=== PATIENT | female | born 1955 | race African-American/Black ===

== ENCOUNTER → 2021-12-10 11:57 | Outpatient (CLI) | payer MEDICARE, SELFPAY | PROVIDERS: Visit Provider Family Medicine | DX: R31.9 Hematuria, unspecified (principal) | CPT/HCPCS: 87086 ==

== ENCOUNTER → 2021-12-10 12:53 | Outpatient (CLI) | payer MEDICARE, SELFPAY ==
[2021-12-10 14:20] LABS: BUN Creatinine Ratio 14.4 (6-22); Blood Urea Nitrogen 16 mg/dL (7-17); Calcium 9.9 mg/dL (8.4-10.2); Carbon Dioxide 28 mmol/L (22-32); Chloride 98 mmol/L (98-107); Estimated Glomerular Filt Rate 49.2 mL/min (>60); Glucose 107 mg/dL (80-110); HEMOLYSIS < 15 (0-50); Potassium 3.5 mmol/L (3.4-5.1); Sodium 133 mmol/L (137-145)
== END ==
PROVIDERS: Referring Provider Family Medicine; Visit Provider Family Medicine
DX: E87.6 Hypokalemia (principal); R33.9 Retention of urine, unspecified; R31.9 Hematuria, unspecified
CPT/HCPCS: 36415; 80048; 87086

== ENCOUNTER → 2022-01-14 11:47 | Outpatient (CLI) | payer MEDICARE, SELFPAY ==
[2022-01-14 12:44] LABS: BUN Creatinine Ratio 6.3 (6-22); Blood Urea Nitrogen 5 mg/dL (7-17); Calcium 9.7 mg/dL (8.4-10.2); Carbon Dioxide 29 mmol/L (22-32); Chloride 105 mmol/L (98-107); Estimated Glomerular Filt Rate > 60.0 mL/min (>60); Glucose 92 mg/dL (80-110); HEMOLYSIS < 15 (0-50); Potassium 3.5 mmol/L (3.4-5.1); Sodium 140 mmol/L (137-145)
== END ==
PROVIDERS: PCP Family Medicine; Referring Provider Family Medicine; Visit Provider Family Medicine
DX: Z87.898 Personal history of other specified conditions (principal)
CPT/HCPCS: 36415; 80048

== ENCOUNTER → 2022-02-21 11:17 | Outpatient (CLI) | payer MEDICARE, MEDICAID, SELFPAY ==
[2022-02-21 11:54] LABS: BUN Creatinine Ratio 18.7 (6-22); Blood Urea Nitrogen 14 mg/dL (7-17); Calcium 8.6 mg/dL (8.4-10.2); Carbon Dioxide 24 mmol/L (22-32); Chloride 107 mmol/L (98-107); Estimated Glomerular Filt Rate > 60 mL/min (>60); Glucose 86 mg/dL (80-110); HEMOLYSIS 36 (0-50); Potassium 3.7 mmol/L (3.4-5.1); Sodium 139 mmol/L (137-145)
== END ==
PROVIDERS: PCP Family Medicine; Referring Provider Urology; Visit Provider Urology
DX: R79.89 Other specified abnormal findings of blood chemistry (principal)
CPT/HCPCS: 36415; 80048

== ENCOUNTER → 2022-05-13 14:57 | Outpatient (CLI) | payer MEDICARE, MEDICAID, SELFPAY ==
--- NOTE | 2022-05-13 15:00 | DI.RAD.S_ITS ---
PROCEDURE: XR KNEE RT 3V INDICATIONS: Right knee pain after injury TECHNIQUE: 3 views of the knee were acquired. COMPARISON: None. FINDINGS: Bones: No definite acute fractures or dislocations. Moderate tricompartmental osteoarthritis is noted. No suspicious bony lesions. Soft tissues: Large suprapatellar joint effusion is seen. No suspicious soft tissue calcifications. IMPRESSION: Large suprapatellar joint effusion. No definite acute right knee fracture or dislocation. Moderate tricompartmental osteoarthritis. If indicated, MRI of knee can be done for further evaluation of internal derangement. Dictated by: Mike Singh M.D. on 05/13/2022 at 16:58 Approved by: Mike Singh M.D. on 05/13/2022 at 16:59
== END ==
PROVIDERS: PCP Family Medicine; Referring Provider Student in an Organized Health Care Education/Training Program; Visit Provider Student in an Organized Health Care Education/Training Program
DX: M25.561 Pain in right knee (principal); M25.461 Effusion, right knee; M17.11 Unilateral primary osteoarthritis, right knee
CPT/HCPCS: 73562

== ENCOUNTER → 2022-07-27 09:36 | Outpatient (CLI) | payer MEDICARE, MEDICAID, SELFPAY ==
[2022-07-27 12:10] LABS: Hemoglobin A1C% w Est Avg Glu 5.1 % (4.0-6.0)
[2022-07-27 12:16] LABS: Add Manual Diff / Slide Review NO; Basophils Absolute Auto 0 /uL (0-100); Basophils Percent Auto 0.5 % (0-2); Eosinophils Absolute Auto 100 /uL (0-450); Eosinophils Percent Auto 1.2 % (2-4); Hematocrit 37.2 % (36-46); Hemoglobin 12.5 g/dL (12.0-16.0); Lymphocytes Absolute Auto 1700 /uL (1100-4500); Lymphocytes Percent Auto 37.4 % (25-40); Mean Corpuscular HGB Conc 33.5 % (30-36); Mean Corpuscular Hemoglobin 28.9 PG (26-34); Mean Corpuscular Volume 86.1 fL (80-100); Monocytes Absolute Auto 500 /uL (0-900); Monocytes Percent Auto 11.2 % (3-14); Neutrophils Absolute Auto 2200 /uL (1500-7000); Neutrophils Percent Auto 49.7 % (50-75); Platelet Count 302 X10^3/uL (150-400); Red Blood Cell Count 4.32 X10^6/uL (4.0-5.2); Red Cell Distribution Width 14.3 % (11.6-14.8); White Blood Cell Count 4.5 X10^3/uL (4.5-11.0)
[2022-07-27 12:18] LABS: HEMOLYSIS < 15 (0-50); Iron 89 ug/dL (37-170)
[2022-07-27 12:27] LABS: Alanine Aminotransferase 23 IU/L (<35); Albumin 3.8 g/dL (3.5-5.0); Albumin Globulin Ratio 1.3 (1.0-2.8); Alkaline Phosphatase 59 U/L (38-126); Aspartate Aminotransferase 29 IU/L (14-36); BUN Creatinine Ratio 18.6 (6-22); Bilirubin Total 0.4 mg/dL (0.2-1.3); Blood Urea Nitrogen 16 mg/dL (7-17); Calcium 9.5 mg/dL (8.4-10.2); Carbon Dioxide 30 mmol/L (22-32); Chloride 105 mmol/L (98-107); Cholesterol 215 mg/dL (140-199); Estimated Glomerular Filt Rate > 60 mL/min (>60); Glucose 84 mg/dL (80-110); HDL Cholesterol 74 mg/dL (40-60); HEMOLYSIS < 15 (0-50); LDL Cholesterol Calculated 127 mg/dL (<100); Potassium 3.7 mmol/L (3.4-5.1); Sodium 140 mmol/L (137-145); Total Protein 6.8 g/dL (6.3-8.2); Triglycerides 69 mg/dL (35-150)
[2022-07-27 12:30] LABS: Percent Iron Saturation 36 % (15-50); Total Iron Binding Capacity 244 ug/dL (265-497); Transferrin 180 mg/dL (206-381)
[2022-07-27 12:36] LABS: Vitamin D 25 Hydroxy (D3) 47.4 ng/mL (30.0-100.0)
[2022-07-27 12:36] LABS: BUN Creatinine Ratio 18.4 (6-22); Blood Urea Nitrogen 16 mg/dL (7-17); Calcium 9.4 mg/dL (8.4-10.2); Carbon Dioxide 28 mmol/L (22-32); Chloride 105 mmol/L (98-107); Estimated Glomerular Filt Rate > 60 mL/min (>60); Glucose 84 mg/dL (80-110); HEMOLYSIS < 15 (0-50); Potassium 3.7 mmol/L (3.4-5.1); Sodium 139 mmol/L (137-145)
[2022-07-27 12:51] LABS: TSH w/ Reflex to FT4 0.46 uIU/mL (0.47-4.68)
[2022-07-27 13:01] LABS: Ferritin 22 ng/mL (11-264)
[2022-07-27 13:15] LABS: Vitamin B12 801 pg/mL (239-931)
[2022-07-27 13:21] LABS: Free T4, Direct Thyroxine 0.95 ng/dL (0.78-2.19)
[2022-07-27 14:18] LABS: Microalbumin Urine Random 3.5 mg/dL (0-1.6)
[2022-07-27 15:05] LABS: Creatinine Urine Random 369.5 mg/dL; Microalbumi Creatinin Ratio Ur 9.4 ug/mg CR (<30)
== END ==
PROVIDERS: Urology; PCP Family Medicine; Referring Provider Family Medicine; Visit Provider Family Medicine
DX: E11.69 Type 2 diabetes mellitus with other specified complication (principal); G62.9 Polyneuropathy, unspecified; F32.A Depression, unspecified; F41.9 Anxiety disorder, unspecified; F43.10 Post-traumatic stress disorder, unspecified; G89.29 Other chronic pain; I10 Essential (primary) hypertension; M51.37 Other intervertebral disc degeneration, lumbosacral region; M54.50 Low back pain, unspecified; Z98.84 Bariatric surgery status; N28.9 Disorder of kidney and ureter, unspecified
CPT/HCPCS: 36415; 80048; 80053; 80061; 82043; 82306; 82570; 82607; 82728; 83036; 83540; 83550; 84439; 84443; 85025

== ENCOUNTER → 2022-11-23 13:02 | Outpatient (CLI) | payer MEDICARE, MEDICAID, SELFPAY ==
--- NOTE | 2022-11-23 13:11 | DI.MRI.S_ITS ---
PROCEDURE: MR KNEE RT WO CON INDICATIONS: chronic right knee pain and effusion TECHNIQUE: Noncontrast sagittal PD fast spin echo and T2 fast spin echo with fat saturation, sagittal 3-D FLASH with fat saturation; coronal T1 spin echo and PD fast spin echo with fat saturation, and axial PD fast spin echo with fat saturation through the knee. COMPARISON: [facility], CR, XR KNEE RT 3V, 05/13/2022, 14:55. FINDINGS: Image quality: Images are mildly degraded by patient motion despite repeat sequences being acquired. Diagnostic information is obtained. Anterior Cruciate Ligament: Intact. Posterior Cruciate Ligament: Intact. Medial Collateral Ligament: Intact. Lateral Collateral Ligament: Mildly increased signal at the proximal lateral collateral ligament is compatible with a remote prior sprain. Medial Meniscus: Medial meniscus appears mildly diminutive without a discrete meniscal tear identified.. Lateral Meniscus: Complex degenerative tearing and maceration of the lateral meniscus with a radial component at the posterior horn and extrusion of the meniscal body beyond the femorotibial joint line. Medial and Lateral Tendons: The semimembranosus tendon insertions and meniscocapsular junction appear intact. Visualized portions of the pes anserinus tendons appear normal. No abnormal bursal fluid. The long and short heads of the biceps femoris tendon appear intact. The popliteus tendon appears intact. No signs of posterolateral corner injury. Iliotibial band appears normal. Anterior Structures: Mild patellar tendinosis. The distal quadriceps tendon is intact. No patellar subluxation. No femoral trochlear dysplasia or ventral trochlear prominence. No edema in the infrapatellar fat pad. Bones: No acute trabecular bone injury or fracture. Medial Femorotibial Cartilage: Large area of at least high-grade partial-thickness cartilage irregularity throughout the weight-bearing portion of the medial femorotibial compartment with formation of small marginal osteophytes. Lateral Femorotibial Cartilage: Full-thickness cartilage loss throughout the central to posterior weight-bearing portion of the lateral femoral condyle and lateral tibial plateau with subchondral sclerosis, subchondral edema, marginal osteophyte formation, and remodeling of the lateral tibial plateau articular surface. Patellofemoral Cartilage: High-grade partial-thickness and full-thickness cartilage loss are seen in the lateral femoral trochlea and lateral patellar facet extending to the trochlear groove. There is multifocal partial cartilage irregularity at the medial patellar facet and medial femoral trochlea. Marginal osteophytes are present. Subchondral cystic changes and edema are seen at the lateral patellar facet and there is mild osseous remodeling within the lateral portion of the anterior compartment. Soft Tissues: There is a large joint effusion with mild synovial hypertrophy and lipoma arborescens. A small medial popliteal cyst is present. There is a small amount of fluid tracking along the popliteus tendon sheath. A posterior pericapsular ganglion cyst measures approximately the 10 x 8 x 13 mm. Nonspecific prepatellar subcutaneous soft tissue edema. No medial popliteal cyst. The musculature surrounding the knee is normal in bulk. IMPRESSION: 1. Diffuse full-thickness cartilage loss throughout the lateral femorotibial compartment with remodeling of the articular surfaces. 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 Tricompartmental marginal osteophytes are present. 2. Complex degenerative tearing and maceration of the lateral meniscus including a radial component at the posterior horn. 3. Chronic low-grade sprain of the proximal lateral collateral ligament. 4. Mild patellar tendinosis. 5. Large joint effusion with mild lipoma arborescens. Small medial and lateral popliteal cysts. Small pericapsular ganglion cyst. Approved by: Tien Costello M.D. on 11/23/2022 at 15:52
== END ==
PROVIDERS: PCP Family Medicine; Referring Provider Family Medicine; Visit Provider Family Medicine
DX: M67.461 Ganglion, right knee (principal); M23.251 Derangement of posterior horn of lateral meniscus due to old tear or injury, right knee; S83.421A Sprain of lateral collateral ligament of right knee, initial encounter; M25.461 Effusion, right knee; M25.561 Pain in right knee; D17.23 Benign lipomatous neoplasm of skin and subcutaneous tissue of right leg; G89.29 Other chronic pain; Z13.820 Encounter for screening for osteoporosis; Z78.0 Asymptomatic menopausal state; M85.851 Other specified disorders of bone density and structure, right thigh
CPT/HCPCS: 73721; 77080

== ENCOUNTER → 2023-04-05 10:47 | Outpatient (CLI) | payer MEDICARE, MEDICAID, SELFPAY ==
--- NOTE | 2023-04-05 10:49 | DI.RAD.S_ITS ---
PROCEDURE: XR FOOT LT MIN 3V INDICATIONS: left foot pain after fall TECHNIQUE: 3 views of the foot were acquired. COMPARISON: None. FINDINGS: Bones: Nondisplaced fracture of the base of the 5th metatarsal. No suspicious bony lesions. Moderate hallux valgus. Degenerative changes are seen at the 1st metatarsophalangeal joint and throughout the interphalangeal joints of the toes. Soft tissues: Soft tissue edema is seen at the lateral midfoot. IMPRESSION: Nondisplaced fracture of the 5th metatarsal base. Approved by: Tien Costello M.D. on 04/05/2023 at 14:49
== END ==
PROVIDERS: PCP Family Medicine; Referring Provider Family Medicine; Visit Provider Family Medicine
DX: S92.355A Nondisplaced fracture of fifth metatarsal bone, left foot, initial encounter for closed fracture (principal); M79.672 Pain in left foot; X58.XXXA Exposure to other specified factors, initial encounter
CPT/HCPCS: 73630

== ENCOUNTER → 2023-06-07 10:33 | Outpatient (CLI) | payer MEDICARE, MEDICAID, SELFPAY ==
--- NOTE | 2023-06-07 10:35 | DI.RAD.S_ITS ---
PROCEDURE: XR HIP W PEL IF DONE RT 2V INDICATIONS: right hip pain TECHNIQUE: 2 views of the hip were acquired. COMPARISON: None. FINDINGS: Bones: No fractures or dislocations. No suspicious bony lesions. The visualized pelvic ring appears intact. Joint space is preserved. Femoral head has a normal contour. Soft tissues: Large calcified uterine fibroid in midline measures 9.5 x 7.7 cm. Lower lumbar spine decompressive laminectomy, interbody fusion and posterior edgard and screw instrumentation IMPRESSION: No evidence of fracture or arthritic changes. Large midline uterine fibroid and lower lumbar spine instrumented fusion and decompression Approved by: Chris Francis M.D. on 06/07/2023 at 17:10
== END ==
PROVIDERS: PCP Family Medicine; Referring Provider Family Medicine; Visit Provider Family Medicine
DX: M25.551 Pain in right hip (principal); D25.9 Leiomyoma of uterus, unspecified; Z98.1 Arthrodesis status
CPT/HCPCS: 73502

== ENCOUNTER → 2023-06-24 12:32 | Outpatient (CLI) | payer MEDICARE, MEDICAID, SELFPAY ==
--- NOTE | 2023-06-24 12:33 | DI.US.S_ITS ---
PROCEDURE: US PELVIC COMPLETE INDICATIONS: RIGHT PELVIC PAIN, FIBROIDS TECHNIQUE: Real-time scanning was performed of the pelvic organs, with image documentation. Additional endovaginal scanning was necessary due to incomplete visualization of the adnexal and endometrial structures by transabdominal scanning. COMPARISON: None. FINDINGS: Uterus: Uterus is anteverted and normal in size at 8.3 x 7.8 x 7.9 cm. The myometrium is heterogeneous. The endometrium measures 4 mm combined thickness. There is an intramural fibroid containing calcifications in the right posterior uterus measuring 7.1 x 7.3 x 7.4 cm. There is an intramural fibroid in the left posterior uterus containing calcifications measuring 2.8 x 2.4 x 2.4 cm Ovaries: Bilateral ovaries are not well visualized. Other: No pathologic free abdominal or pelvic fluid. IMPRESSION: Two intramural calcified fibroids measuring up to 7.4 cm on the right and 2.8 cm on the left. We strive to produce accurate, complete, and clear reports of imaging services. To assist us in improving patient care, this report was composed using standard report templates and voice recognition software. Therefore, it may contain abnormal punctuation, insertions and/or omissions. Occasional wrong-word or sound-alike substitutions may occur. Though we review the report and make efforts to correct it, we do recommend that the report be read carefully in proper context to recognize any text inaccuracies. Dictated by: Gladys Sung M.D. on 06/24/2023 at 18:25 Approved by: Gladys Sung M.D. on 06/24/2023 at 18:28
== END ==
PROVIDERS: PCP Family Medicine; Referring Provider Obstetrics & Gynecology; Visit Provider Obstetrics & Gynecology
DX: M25.551 Pain in right hip; D25.1 Intramural leiomyoma of uterus
CPT/HCPCS: 76830; 76856

== ENCOUNTER → 2023-11-30 08:08 | Outpatient (CLI) | payer MEDICARE, MEDICAID, SELFPAY ==
[2023-11-30 09:01] LABS: Add Manual Diff / Slide Review NO; Basophils Absolute Auto 0 /uL (0-100); Basophils Percent Auto 0.8 % (0-2); Eosinophils Absolute Auto 0 /uL (0-450); Eosinophils Percent Auto 0.9 % (2-4); Hematocrit 39.6 % (36-46); Hemoglobin 13.1 g/dL (12.0-16.0); Lymphocytes Absolute Auto 1800 /uL (1100-4500); Lymphocytes Percent Auto 42.2 % (25-40); Mean Corpuscular HGB Conc 33.2 % (30-36); Mean Corpuscular Hemoglobin 29.1 PG (26-34); Mean Corpuscular Volume 87.8 fL (80-100); Monocytes Absolute Auto 500 /uL (0-900); Monocytes Percent Auto 11.3 % (3-14); Neutrophils Absolute Auto 1900 /uL (1500-7000); Neutrophils Percent Auto 44.8 % (50-75); Platelet Count 313 X10^3/uL (150-400); Red Blood Cell Count 4.51 X10^6/uL (4.0-5.2); White Blood Cell Count 4.2 X10^3/uL (4.5-11.0)
[2023-11-30 09:27] LABS: Alanine Aminotransferase 18 IU/L (<35); Albumin Globulin Ratio 1.4 (1.0-2.8); Alkaline Phosphatase 56 U/L (38-126); Aspartate Aminotransferase 22 IU/L (14-36); BUN Creatinine Ratio 17.4 (6-22); Bilirubin Total 0.6 mg/dL (0.2-1.3); Blood Urea Nitrogen 15 mg/dL (7-17); Calcium 9.7 mg/dL (8.4-10.2); Carbon Dioxide 28 mmol/L (22-32); Chloride 103 mmol/L (98-107); Cholesterol 237 mg/dL (140-199); Estimated Glomerular Filt Rate > 60 mL/min (>60); Globulin 2.9 g/dL (1.7-4.1); Glucose 96 mg/dL (80-110); HDL Cholesterol 90 mg/dL (40-60); HEMOLYSIS < 15 (0-50); LDL Cholesterol Calculated 131 mg/dL (<100); Potassium 3.7 mmol/L (3.4-5.1); Sodium 136 mmol/L (137-145); Total Protein 6.9 g/dL (6.3-8.2); Triglycerides 80 mg/dL (35-150)
[2023-11-30 09:55] LABS: TSH w/ Reflex to FT4 0.65 uIU/mL (0.47-4.68)
[2023-11-30 11:32] LABS: Creatinine Urine Random 126.6 mg/dL
[2023-11-30 11:37] LABS: Microalbumi Creatinin Ratio Ur 34.7 ug/mg CR (<30); Microalbumin Urine Random 4.4 mg/dL (0-1.6)
== END ==
PROVIDERS: PCP Family Medicine; Referring Provider Family Medicine; Visit Provider Family Medicine
DX: I10 Essential (primary) hypertension (principal); E78.5 Hyperlipidemia, unspecified; G62.9 Polyneuropathy, unspecified; G89.29 Other chronic pain; M54.9 Dorsalgia, unspecified
CPT/HCPCS: 36415; 80053; 80061; 82043; 82570; 84443; 85025

== ENCOUNTER → 2024-06-08 10:19 | Outpatient (CLI) | payer MEDICARE, MEDICAID, SELFPAY ==
--- NOTE | 2024-06-08 10:20 | DI.US.S_ITS ---
PROCEDURE: US ABDOMEN LIMITED INDICATIONS: rule out gallstones TECHNIQUE: Real-time focused scanning was performed of the abdomen, with image documentation. COMPARISON: None. FINDINGS: The liver is normal in size and demonstrates no suspicious lesions. No findings of gallstones or sludge are seen. The gallbladder wall is not thickened, measuring 3 mm or less. No specific pericholecystic fluid is seen. The sonographic Peterson sign is negative. There is no biliary dilatation, the common bile duct measures 2 mm. No significant pancreatic abnormality is seen on these images. IMPRESSION: The gallbladder demonstrates a normal sonographic appearance. No biliary dilatation is seen. Dictated by: Desmond Hernandez M.D. on 06/08/2024 at 13:29 Approved by: Desmond Hernandez M.D. on 06/08/2024 at 13:30
== END ==
PROVIDERS: PCP Family Medicine; Referring Provider Surgery; Visit Provider Surgery
DX: R10.13 Epigastric pain (principal)
CPT/HCPCS: 76705

== ENCOUNTER → 2024-06-12 08:51 | Outpatient (CLI) | payer MEDICARE, MEDICAID, SELFPAY ==
[2024-06-12 09:57] LABS: Hematocrit 36.9 % (36-46); Hemoglobin 12.4 g/dL (12.0-16.0); Mean Corpuscular HGB Conc 33.5 % (30-36); Mean Corpuscular Hemoglobin 30.1 PG (26-34); Mean Corpuscular Volume 89.8 fL (80-100); Platelet Count 371 X10^3/uL (150-400); Red Blood Cell Count 4.11 X10^6/uL (4.0-5.2); Red Cell Distribution Width 13.2 % (11.6-14.8); White Blood Cell Count 4.9 X10^3/uL (4.5-11.0)
[2024-06-12 10:21] LABS: Alanine Aminotransferase 18 IU/L (<35); Albumin Globulin Ratio 1.6 (1.0-2.8); Alkaline Phosphatase 67 U/L (38-126); Aspartate Aminotransferase 24 IU/L (14-36); BUN Creatinine Ratio 19.2 (6-22); Bilirubin Total 0.4 mg/dL (0.2-1.3); Blood Urea Nitrogen 14 mg/dL (7-17); Calcium 9.7 mg/dL (8.4-10.2); Carbon Dioxide 28 mmol/L (22-32); Chloride 102 mmol/L (98-107); Estimated Glomerular Filt Rate > 60 mL/min (>60); Globulin 2.5 g/dL (1.7-4.1); Glucose 98 mg/dL (80-110); HEMOLYSIS < 15 (0-50); Lipase 89 U/L (23-300); Potassium 3.9 mmol/L (3.4-5.1); Sodium 135 mmol/L (137-145); Total Protein 6.5 g/dL (6.3-8.2)
[2024-06-12 10:23] LABS: Cholesterol 232 mg/dL (140-199); HDL Cholesterol 82 mg/dL (40-60); LDL Cholesterol Calculated 121 mg/dL (<100); Triglycerides 146 mg/dL (35-150)
[2024-06-12 10:29] LABS: Neutrophils Absolute Manual 1519 /uL (3000-5900); Total Cells Counted 100
[2024-06-12 10:30] LABS: RBC Morphology Normal Morphology
[2024-06-13 03:39] LABS: Apolipoprotein B 98 mg/dL (<90)
== END ==
PROVIDERS: PCP Family Medicine; Referring Provider Surgery; Visit Provider Surgery
DX: E78.5 Hyperlipidemia, unspecified (principal); I10 Essential (primary) hypertension; R10.13 Epigastric pain
CPT/HCPCS: 36415; 80053; 80061; 82172; 83690; 85025; 99213

== ENCOUNTER 2024-06-22 13:38 | Day surgery (SDC) | payer MEDICARE, MEDICAID, SELFPAY ==
--- NOTE | 2024-06-22 | PATH_ITS ---
[facility] Accession Number: [id number] No. of containers..04 Tissue . 01 Material submitted: . PART A: duodenum - DUODENUM BIOPSY PART B: gastrointestinal site - ANTRUM PART C: gastrointestinal site - MID BODY OF STOMACH BIOPSY PART D: esophagus - DISTAL ESOPHAGUS BIOPSY . 01 Diagnosis: Part A: DUODENUM BIOPSY: Duodenal mucosa with no diagnostic alterations. No active inflammation and no evidence of celiac disease. . Part B: ANTRUM: Gastric mucosa with mild chronic inflammation and intestinal metaplasia. No Helicobacter organisms identified. No dysplasia or malignancy identified. . Part C: MID BODY OF STOMACH BIOPSY: Gastric mucosa with mild chronic inflammation and intestinal metaplasia. No Helicobacter organisms identified. No dysplasia or malignancy identified. . Part D: DISTAL ESOPHAGUS BIOPSY: Squamous mucosa with ulcer. No dysplasia, malignancy, or infectious organisms identified. See comment. . Specimen Comments: The histologic features raise a differential including severe reflux or pill esophagitis. Clinical correlation is recommended for further evaluation. [facility] 06/27/2024 1604 Local . 01 Comment: Parts B, C: An immunohistochemical stain was performed to evaluate for Helicobacter organisms and is negative. The control stains appropriately. * This test was developed and its performance characteristics determined by [facility]. It has not been cleared or approved by the [place]. Food and Drug Administration. The FDA has determined that such clearance or approval is not necessary. This test is used for clinical purposes. It should not be regarded as investigational or for research. . 01 Electronically signed: . Akbar Zee MD, Pathologist NPI- [id number] . 01 Gross description: . A. Received in formalin with two patient identifiers and duodenum, are two boland soft tissue fragments, both measuring 0.4 cm in greatest dimension. Submitted in A1. . B. Received in formalin with two patient identifiers and antrum, are three boland soft tissue fragments, 0.3 to 0.8 cm in greatest dimension. Submitted in B1. . C. Received in formalin with two patient identifiers and mid body at the stomach, are three boland soft tissue fragments, 0.2 to 0.4 cm in greatest dimension. Submitted in C1. . D. Received in formalin with two patient identifiers and distal esophagus, are two boland soft tissue fragments, 0.3 to 0.4 cm in greatest dimension. Submitted in D1. ([id number]) /MRV 06/27/2024 1604 Local . 01 Microscopic: . Part D: DISTAL ESOPHAGUS BIOPSY: An ABPAS stain was performed to evaluate for fungal organisms and is negative. The control stains appropriately. No viral cytopathic changes are seen. . 01 Pathologist provided ICD-10: K22.10, K29.50, K31.A0 . 01 CPT . 945183, 077006, 656219, [id number], 360025, [id number] Specimen Comment: A courtesy copy of this report has been sent to [phone] Performed at: [address] [address] [address], [place], [place] [id number] MD Akbar Zee MD Phone: [phone]
[2024-06-22] MEDS: LACTATED RINGERS 1,000 ML 42 ML IV (13:50)
[2024-06-22 14:07] VITALS: BP 158/93; PULSE 74; RESP 16; TEMP 36.6; O2SAT 98
--- NOTE | 2024-06-22 14:13 | PM.PREOP ---
Pre-operative Note COVID-19 COVID-19 status: Not tested Interval Note History & Physical reviewed/Exam performed by Physician: Yes Changes to H&P: No ASA Class (for procedural sedation): II
[2024-06-22 15:06] VITALS: BP 106/67; PULSE 61; RESP 15; TEMP 36.1; O2SAT 100
--- NOTE | 2024-06-22 15:10 | P.OP.EGD&C_ITS ---
Operative Date/Time/Diagnoses Date of procedure: 06/22/24 Time of procedure: 15:10 Pre-op diagnosis: Epigastric pain Post-op diagnosis: same Procedure & Clinicians Study performed: EGD and colonoscopy Same procedure as scheduled: Yes Surgeon: Jann Lee Procedure Notes Procedure in detail: Surgeon: Jann Lee MD Anesthesia: Araceli Denny MD Procedure in detail: A timeout was performed. A bite blocked was placed and monitors were attached to the patient. The patient was positioned in the left lateral decubitus position. Sedation was administered. Once the patient was sedated the endoscope was inserted through the bite block and passed through the esophagus and stomach and into the duodenum. No abnormalities were seen in the duodenal. We performed random biopsies of the duodenal mucosa with cold forceps. We then withdrew the scope into the stomach. The stomach was tu bularized consistent with a history of a gastric sleeve. There was some mild antritis and random biopsies were taken from the antrum. There were erosions in the mid body of the stomach and biopsies were taken with cold forceps. The endoscope was retroflexed and no abnormality was seen. The endoscope was straightned and withdrawn into the esophagus. There were streaks of salmon- colored mucosa exceeding 2 cm in the distal esophagus and biopsies were taken with forceps. EGD findings: Antritis, erosions in the midbody of the stomach and segments of salmon-colored patches of mucosa exceeding 2 cm in the distal esophagus Next we repositioned the patient for a colonoscopy. A digital rectal exam was performed and was normal. The colonoscope was inserted and advanced to the cecum. The appendiceal orifice was identified and photographed. The scope was slowly withdrawn over greater than 6 minutes. No abnormalities were identified. The scope was retroflexed in the rectum and no abnormalities were seen. Colonoscopy findings: Normal colon Total procedural EBL: 5 mL Scope withdrawal time: 9 minutes Sedation minutes: 31 minutes Post-procedure Disposition: PACU
[2024-06-22 15:13] VITALS: BP 140/91; PULSE 61; RESP 18; TEMP 36.2; O2SAT 99
[2024-06-22 15:20] VITALS: BP 141/78; PULSE 62; RESP 18; TEMP 36.6; O2SAT 98
== END 2024-06-22 15:33 | disposition home or self-care (01) ==
PROVIDERS: PCP Family Medicine; Referring Provider Surgery; Visit Provider Surgery
PROC: 0DJ08ZZ Inspection of Upper Intestinal Tract, Via Natural or Artificial Opening Endoscopic (ICD-10-PCS; CPT 43235; principal; 2024-06-22 14:45)
PROC: 0DJD8ZZ Inspection of Lower Intestinal Tract, Via Natural or Artificial Opening Endoscopic (ICD-10-PCS; CPT 45378; 2024-06-22 14:45)
DX: K29.50 Unspecified chronic gastritis without bleeding (principal); K31.A15 Gastric intestinal metaplasia without dysplasia, involving multiple sites; K22.10 Ulcer of esophagus without bleeding
CPT/HCPCS: 45378; 43239; J2704

== ENCOUNTER → 2025-10-02 14:09 | Outpatient (CLI) | payer MEDICARE, MEDICAID, SELFPAY ==
--- NOTE | 2025-10-02 14:10 | DI.MG.S_ITS ---
MM screening mammo BI: 10/02/2025. BI-RADS: 2 CLINICAL: 70-year old female for bilateral screening mammogram. Tyrer-Cuzick lifetime risk of 10.1%. Current reported family history of breast cancer: sister. PRIOR EXAMS Os--8-31-21, 3-6-18, 1-20-17, 7-1-16. MAMMOGRAPHY TECHNIQUE: 2D and 3D (tomosynthesis) digital mammographic views obtained, with additional images as needed for full coverage. Current study was also evaluated with a Computer Aided Detection (CAD) system. DENSITY D. The breasts are extremely dense, which lowers the sensitivity of mammography. MAMMOGRAPHY FINDINGS Bilateral: Benign-appearing calcifications noted. There are no suspicious masses, calcifications, or other findings in the breast. IMPRESSION: * No evidence of malignancy with benign findings. RECOMMENDATIONS Bilateral * Annual screening mammography. OVERALL ASSESSMENT CATEGORY BI-RADS-2: Benign. The [employer] recommends annual screening mammography beginning at age 40 for women with average risk of breast cancer. ELECTRONICALLY SIGNED: Yonis Saleh M.D. on 10/03/2025 at 01:17:12 PM PT Interpreting Station ID: [id number]
== END ==
LOC: MAMMO 14:09
PROVIDERS: PCP Family Medicine; Referring Provider Family Medicine; Visit Provider Family Medicine
DX: Z12.31 Encounter for screening mammogram for malignant neoplasm of breast (principal); R92.343 Mammographic extreme density, bilateral breasts; Z80.3 Family history of malignant neoplasm of breast
CPT/HCPCS: 77063; 77067